=== PATIENT | male | born 1990 | race Hispanic/Latino ===

== ENCOUNTER 2021-01-20 17:54 | Emergency (ER) | payer MEDICAID, OTHER ==
[2021-01-20 19:45] LABS: APPEARANCE,URINE CLOUDY (CLEAR); BILIRUBIN,URINE MODERATE (NEGATIVE); COLOR,URINE YELLOW (YELLOW); GLUCOSE, URINE (UA) NEGATIVE (NEGATIVE); KETONES,URINE 5 mg/dL (NEGATIVE); LEUKOCYTE ESTERASE ,URINE MODERATE (NEGATIVE); NITRATE,URINE NEGATIVE (NEGATIVE); OCCULT BLOOD,URINE MODERATE (NEGATIVE); PH,URINE >=9.0 (5.0-8.0); PROTEIN,URINE 30 mg/dL (NEGATIVE); UROBILINOGEN,URINE 0.2 mg/dL (0.2-1.0)
[2021-01-20 19:45] LABS: BASOPHILS % (AUTO) 0.5 % (0.0-5.0); EOSINOPHILS % (AUTO) 0.8 % (0.0-8.0); HEMATOCRIT 48.5 % (42-54); LYMPHOCYTES % (AUTO) 20.1 % (21.0-51.0); MEAN CORPUSCULAR HEMOGLOBIN 30.6 pg (27.0-33.0); MEAN CORPUSCULAR HGB CONC 35.7 g/dL (32.0-36.0); MEAN CORPUSCULAR VOLUME 85.8 fL (79-99); MONOCYTES % (AUTO) 6.2 % (3.0-13.0); NEUTROPHILS % (AUTO) 71.8 % (40.0-77.0); PLATELET COUNT (AUTO) 213 K/uL (130-400); RED BLOOD CELL COUNT(AUTO) 5.65 MIL/uL (4.50-6.20); RED CELL DISTRIBUTION WIDTH 12.7 % (11.0-15.5); WHITE BLOOD COUNT (AUTO) 10.9 K/uL (4.8-10.8)
[2021-01-20 20:04] LABS: CREATININE 0.8 mg/dL (0.5-1.5); POTASSIUM 3.4 mmol/L (3.5-5.1)
[2021-01-20 20:08] LABS: ALBUMIN 4.5 g/dL (3.5-5.0); BILIRUBIN,TOTAL 0.7 mg/dL (0.2-1.0); TOTAL PROTEIN, SERUM 8.2 g/dL (6.0-8.3)
[2021-01-20 20:11] LABS: BACTERIA,URINE Few /HPF (None Seen); RBC,URINE None Seen /HPF (0-1); SQUAMOUS EPITHELIAL CELL,UR None Seen /HPF (0-2)
[2021-01-20 20:12] LABS: AMORPHOUS SEDIMENT,UR Many /LPF (None Seen)
[2021-01-20] MEDS ORDERED: LIDOCAINE HCL-MPF 1% 2ML VIAL ONE (20:36)
[2021-01-20] MEDS ORDERED: CEFTRIAXONE SODIUM 1 GM ONE (20:36)
== END 2021-01-20 20:50 | disposition home or self-care (01) ==
LOC: EDH 17:54
DX: N30.90 Cystitis, unspecified without hematuria (principal); K52.9 Noninfective gastroenteritis and colitis, unspecified; Z87.891 Personal history of nicotine dependence
CPT/HCPCS: 36415; 80053; 81001; 85025; 87077; 87088; 87186; 87507; 96372; 99283; J0696; J3490

== ENCOUNTER 2024-03-23 07:04 | Inpatient (IN) | payer OTHER ==
[~2024-03-23] VITALS: Ht 177.8 cm; Wt 110.9 kg
[2024-03-23 07:29] LABS: BASOPHILS # (AUTO) 0.08 K/uL (0.00-0.20); BASOPHILS % (AUTO) 0.8 % (0.0-5.0); EOSINOPHILS # (AUTO) 0.27 K/uL (0.00-0.70); EOSINOPHILS % (AUTO) 2.8 % (0.0-8.0); HEMATOCRIT 43.6 % (42-54); IMMATURE GRANULOCYTE ABSOLUTE 0.09 K/uL (0-1); LYMPHOCYTES # (AUTO) 4.5 K/uL (1.0-4.8); LYMPHOCYTES % (AUTO) 46.2 % (21.0-51.0); MEAN CORPUSCULAR HEMOGLOBIN 30.7 pg (27.0-33.0); MEAN CORPUSCULAR HGB CONC 36.7 g/dL (32.0-36.0); MEAN CORPUSCULAR VOLUME 83.5 fL (79-99); MONOCYTES # (AUTO) 0.8 K/uL (0.1-1.0); MONOCYTES % (AUTO) 8.5 % (3.0-13.0); NEUTROPHILS # (AUTO) 3.9 K/uL (1.8-7.7); NEUTROPHILS % (AUTO) 40.8 % (40.0-77.0); PLATELET COUNT (AUTO) 206 K/uL (130-400); RED BLOOD CELL COUNT(AUTO) 5.22 MIL/uL (4.50-6.20); RED CELL DISTRIBUTION WIDTH 13.1 % (11.0-15.5); WHITE BLOOD COUNT (AUTO) 9.7 K/uL (4.8-10.8)
[2024-03-23 07:45] LABS: BILIRUBIN,TOTAL 0.6 mg/dL (0.2-1.0); TOTAL PROTEIN, SERUM 7.4 g/dL (6.0-8.3)
[2024-03-23] MEDS: KETOROLAC 15MG/ML VIAL (15MG/ML) ONE (07:48)
[2024-03-23] MEDS: KETOROLAC 15MG/ML VIAL (15MG/ML) IV ONE (07:49)
[2024-03-23 08:11] LABS: POTASSIUM 2.6 mmol/L (3.5-5.1)
[2024-03-23] MEDS: 0.9%NACL 1000ML 1,000 ML IV SCH ×3 (09:10→20:27)
[2024-03-23] MEDS: KCL 20 MEQ ERTAB PO ONE (09:12)
[2024-03-23 09:18] LABS: APPEARANCE,URINE CLEAR (CLEAR); BILIRUBIN,URINE NEGATIVE (NEGATIVE); COLOR,URINE LIGHT-YELLOW (YELLOW); GLUCOSE, URINE (UA) NEGATIVE (NEGATIVE); KETONES,URINE NEGATIVE (NEGATIVE); LEUKOCYTE ESTERASE ,URINE NEGATIVE Leu/uL (NEGATIVE); NITRATE,URINE NEGATIVE (NEGATIVE); OCCULT BLOOD,URINE MODERATE (NEGATIVE); PH,URINE 6.5 (5.0-8.0); PROTEIN,URINE NEGATIVE (NEGATIVE); UROBILINOGEN,URINE 0.2 mg/dL (0.2-1.0)
[2024-03-23 09:21] LABS: ADD UA MICROSCOPIC YES
[2024-03-23 09:45] LABS: BACTERIA,URINE RARE /HPF (None Seen); MUCUS,URINE RARE LPF (None Seen); SQUAMOUS EPITHELIAL CELL,UR RARE /HPF (0-2)
[2024-03-23] MEDS: ZOSYN 3.375GM +NS 50ML IV ONE (14:39)
[2024-03-23] MEDS ORDERED: ACETAMINOPHEN 325 MG TAB PO PRN ×2 (18:30)
[2024-03-23] MEDS ORDERED: MORPHINE 2 MG SYG IV PRN (18:30)
[2024-03-23] MEDS ORDERED: ACETAMINOPHEN WITH CODEINE 1 TAB TAB PO PRN ×2 (18:30)
[2024-03-23] MEDS ORDERED: ONDANSETRON 4MG INJ IV PRN (18:30)
[2024-03-23] MEDS: ZOSYN 3.375GM+NS 50ML 50 ML IV SCH (21:02)
[2024-03-23] MEDS: FAMOTIDINE 20MG VIAL IV SCH (21:02)
[2024-03-23] MEDS: POTASSIUM CHLORIDE 10% ELIXIR 20 MEQ/15 ML UDCUP PO PRN (21:17)
[2024-03-23 21:35] VITALS: O2SAT 98
[2024-03-23] MEDS: POTASSIUM CHLORIDE 10MEQ/100ML 100 ML IV PRN (21:43)
[2024-03-23 21:55] VITALS: BP 133/83; PULSE 70; RESP 18
[2024-03-23 23:47] VITALS: BP 123/91; PULSE 71; RESP 17
[2024-03-23] MEDS: KCL 20 MEQ ERTAB PO PRN (23:58)
[2024-03-24 04:01] VITALS: BP 108/65; PULSE 69; RESP 16
[2024-03-24 04:14] LABS: BASOPHILS # (AUTO) 0.04 K/uL (0.00-0.20); BASOPHILS % (AUTO) 0.4 % (0.0-5.0); EOSINOPHILS # (AUTO) 0.19 K/uL (0.00-0.70); HEMATOCRIT 41.2 % (42-54); IMMATURE GRANULOCYTE ABSOLUTE 0.08 K/uL (0-1); LYMPHOCYTES # (AUTO) 2.8 K/uL (1.0-4.8); MEAN CORPUSCULAR HEMOGLOBIN 30.9 pg (27.0-33.0); MEAN CORPUSCULAR HGB CONC 35.2 g/dL (32.0-36.0); MEAN CORPUSCULAR VOLUME 87.8 fL (79-99); MONOCYTES # (AUTO) 0.8 K/uL (0.1-1.0); MONOCYTES % (AUTO) 8.8 % (3.0-13.0); NEUTROPHILS # (AUTO) 5.6 K/uL (1.8-7.7); PLATELET COUNT (AUTO) 200 K/uL (130-400); RED BLOOD CELL COUNT(AUTO) 4.69 MIL/uL (4.50-6.20); RED CELL DISTRIBUTION WIDTH 13.2 % (11.0-15.5); WHITE BLOOD COUNT (AUTO) 9.6 K/uL (4.8-10.8)
[2024-03-24 04:48] LABS: ALBUMIN 3.3 g/dL (3.5-5.0); BILIRUBIN,TOTAL 0.8 mg/dL (0.2-1.0); CREATININE 0.8 mg/dL (0.5-1.3); POTASSIUM 3.6 mmol/L (3.5-5.1); TOTAL PROTEIN, SERUM 6.2 g/dL (6.0-8.3)
[2024-03-24 06:05] LABS: ERYTHROCYTE SEDIMENTATION RATE 11 MM/HR (0-15)
[2024-03-24 08:00] VITALS: BP_SYST 110; BP_SYST 119; BP_DIAS 52; BP_DIAS 71; PULSE 64; PULSE 72; RESP 20; O2SAT 96
[2024-03-24 08:00] LABS: HEMOGLOBIN A1C 5.2 % (4.0-6.0)
[2024-03-24] MEDS ORDERED: MAGNESIUM 2GM PREMIX 50ML 50 ML IV PRN (08:00)
[2024-03-24 12:00] VITALS: BP 139/86; PULSE 75; RESP 20
[2024-03-24 16:00] VITALS: BP 133/70; PULSE 83; RESP 20
== END 2024-03-24 20:15 | disposition home or self-care (01) | DRG 690 ==
LOC: EDH 07:04 → EDHIP 07:05 → UNDOADMIN 18:42 → 3BH 21:03
PROVIDERS: ADMIT Hospitalist; ATTEND Hospitalist
DX: N13.6 Pyonephrosis (principal); F12.90 Cannabis use, unspecified, uncomplicated; E87.6 Hypokalemia; Z87.891 Personal history of nicotine dependence
CPT/HCPCS: 36415; 74176; 80053; 81001; 83036; 84145; 85025; 85651; 87088; 99291; G0378; J1885; J2543; J3480; J3490; J7030; A4510